=== PATIENT | female | born 1955 | race Caucasian/White ===

== ENCOUNTER → 2018-09-23 13:56 | Outpatient (CLI) | payer BC, SELFPAY ==
--- NOTE | 2018-09-23 14:07 | RAD_ITS ---
STUDY: X-RAY - RIGHT SHOULDER REASON FOR EXAM: Female, 63 years old. Inflammatory polyarthropathy. TECHNIQUE: 4 view(s) of the shoulder. COMPARISON: None. 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 Normal acromion. There is degenerative change of the thoracic spine. Normal humeral head and visualized proximal humerus. The soft tissue structures are unremarkable. Normal visualized pulmonary apex. RAD/Shoulder min 2 Views IMPRESSION: Mild degenerative change. Degenerative changes of the thoracic spine. Electronically Signed: Rachel Adams MD at 22:27 EST Tel , Service support ,
--- NOTE | 2018-09-23 14:08 | RAD_ITS ---
HISTORY: inflammatory polyarthropathy COMPARISON: None FINDINGS: AP Pelvis: 1 view. No fracture or acute disease. The right and left femoral acetabular joint spaces appear preserved the SI joints are not narrowed. No definite bony erosions. Pelvic phleboliths. RAD/Pelvis 1 or 2 Views IMPRESSION: Negative exam. No acute disease or significant arthritis identified. at [id number] Reported and signed by: Zoran Lua MD Electronically Signed: Zoran Lua, at 4:37 EST Tel , Service support ,
--- NOTE | 2018-09-23 14:08 | RAD_ITS ---
STUDY: X-RAY - LEFT SHOULDER REASON FOR EXAM: Female, 63 years old. Inflammatory polyarthropathy TECHNIQUE: 4 view(s) of the shoulder. COMPARISON: None. FINDINGS: Normal glenohumeral articulation. There is degenerative arthrosis of the acromioclavicular joint without inferior osseous spur formation. Normal acromion. Normal humeral head and visualized proximal humerus. The soft tissue structures are unremarkable. Normal visualized pulmonary apex. RAD/Shoulder min 2 Views IMPRESSION: Acromioclavicular degenerative change. No fracture. Electronically Signed: Rachel Adams MD at 2:53 EST Tel , Service support ,
[2018-09-23 16:12] LABS: Absolute Lymphocyte Count 2.58 X10^3/ul (0.83-4.51); Absolute Neutrophil Count 4.7 X10^3/uL (2.0-7.7); Basophil# 0.02 X10^3/uL; Basophil% 0.2 % (0-1); Eosinophil# 0.22 X10^3/uL; Eosinophils% 2.7 % (0-5); Hemoglobin 12.4 g/dl (12.0-15.0); Lymphocyte # 2.58 X10^3/ul (4.0); Lymphocyte % 31.2 % (19-41); Mean Corpuscular Hgb 26.5 pg (27.0-32.0); Mean Corpuscular Volume 85.5 fL (81-99); Mean Platelet Vol. 9.8 fl (6.2-12.0); Monocyte# 0.72 X10^3/uL; Monocyte% 8.7 % (0-10); Neutrophil # 4.72 X10^3/uL (2.7-7.7); Platelet Count 330 K/mm3 (150-450); RBC Distribution Width CV 13.4 % (11.6-14.6); RBC Distribution Width SD 41.7 fl (35.1-43.9); Red Blood Count 4.68 M/mm3 (4.2-5.4); White Blood Count 8.3 K/mm3 (4.4-11.0)
[2018-09-23 16:15] LABS: POSITIVE COUNT NO; POSITIVE DIFFERENTIAL NO; POSITIVE MORPHOLOGY NO
[2018-09-23 16:36] LABS: Erythrocyte Sedimentation Rate 75 mm/hr (0-30)
[2018-09-23 16:40] LABS: ALB/GLOB Ratio 0.8 RATIO (0.9-2.4); AST(SGOT) 17 U/L (15-37); Alanine Aminotransfer ALT/SGPT 23 U/L (13-56); Albumin, Serum 3.8 g/dL (3.2-5.0); Alkaline Phosphatase 94 U/L (45-117); Anion Gap 8 (5-15); BUN 20 mg/dL (7-18); BUN/Creat Ratio 27.9 RATIO (10-20); Calcium,Total 9.5 mg/dL (8.5-10.1); Chloride 102 mmol/L (98-107); Creatinine, Serum 0.72 mg/dL (0.55-1.02); EST Glomerular Filtration Rate 88 mL/min (>60); Est Glom Filt Rate - Afr Amer 106 mL/min (>60); Globulin 4.5 g/dL (2.2-4.2); Glucose 92 mg/dL (74-106); Protein, Total 8.3 g/dL (6.4-8.2); Rheumatoid Factor < 10.0 IU/mL (<15); Sodium Level 138 mmol/L (136-145)
[2018-09-27 09:56] LABS: ANTINUCLEAR ANTIBODIES DIRECT Negative (Negative)
[2018-10-01 15:20] LABS: CCP IgG Antibodies 28 units (0-19); HEPATITIS B SURFACE AG Negative (Negative); HLA B27 Negative (.); Hep B Surface Antibodies Non Reactive (.); Hep C Antibodies 0.2 s/co ratio (0.0-0.9)
--- OUTSIDE RECORDS SUMMARY | 2018-11-26 02:08 | XMS RPT_ITS ---
:1955 Author Organization OHIP Care Team Providers Name Role Phone CYN UNDERWOOD Admitting Unavailable CYN UNDERWOOD Attending Unavailable CYN UNDERWOOD Primary Care Unavailable CYN UNDERWOOD Consulting Unavailable PROVIDER, UNKNOWN Consulting Unavailable PROVIDER, UNKNOWN Consulting Unavailable PROVIDER, UNKNOWN Consulting Unavailable SABI CAMPOS DO Admitting Unavailable SABI CAMPOS DO Attending Unavailable SABI CAMPOS DO Primary Care Unavailable CYN UNDERWOOD Consulting Unavailable CYN UNDERWOOD Referring Unavailable PROVIDER, UNKNOWN Consulting Unavailable PROVIDER, UNKNOWN Consulting Unavailable PROVIDER, UNKNOWN Consulting Unavailable CYN UNDERWOOD Admitting Unavailable CYN UNDERWOOD Attending Unavailable CYN UNDERWOOD Primary Care Unavailable CYN UNDERWOOD Consulting Unavailable PROVIDER, UNKNOWN Consulting Unavailable PROVIDER, UNKNOWN Consulting Unavailable PROVIDER, UNKNOWN Consulting Unavailable Tisha Pope Attending Unavailable Tisha Pope Referring Unavailable Cyn Underwood Primary Care Unavailable PROBLEMS PROBLEMS DATE TYPE CONDITION / CODE ATTENDING STATUS SOURCE 09/23/2018 Unknown 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, Active [place] polyarthropathy / [facility] M06.4(ICD-10) Hospital Repository 09/23/2018 Unknown 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, Active [place] [facility] F32.89(ICD-10) Repository 02/16/2018 Principle Encounter for CYN UNDERWOOD Active [facility] Z131(ICD-10) Repository 02/16/2018 Secondary Encounter for CYN UNDERWOOD Active [facility] Diagnosis screening for lipoid [facility] disorders / Hospital X26243(ICD-10) Repository PROCEDURES PROCEDURES No Procedure Records FoundRESULTS RESULTS CBC W/DIFF, AUTOMATED Collected: 09/23/2018 Status: F Source: [place] 2:12 PM [facility] HOSPITAL REPOSITORY TYPE CODE TESTS RESULT OUT OF RANGE REFERENCE UNITS LAB L100.1000 4.4-11.0 K/mm3 Normal WBC 8.3 LAB L100.1200 4.2-5.4 M/mm3 Normal RBC 4.68 LAB L100.1300 12.0-15.0 g/dl Normal HGB 12.4 LAB L100.1400 37-47 % Normal HCT 40.0 LAB L100.1500 81-99 fL Normal MCV 85.5 LAB L100.1600 27.0-32.0 pg Low MCH 26.5 LAB L100.1700 32-36 g/gl Low MCHC 31.0 LAB L100.1810 11.6-14.6 % Normal RDW CV 13.4 LAB L100.1820 35.1-43.9 fl Normal RDW SD 41.7 LAB L100.1900 150-450 K/mm3 Normal PLT 330 LAB L100.2000 6.2-12.0 fl Normal MPV 9.8 LAB L100.2100 47-70 % Normal NEUT% 57.0 LAB L100.2200 19-41 % Normal LY% 31.2 LAB L100.2300 0-10 % Normal MONO% 8.7 LAB L100.2400 0-5 % Normal EO% 2.7 LAB L100.2500 0-1 % Normal BASO% 0.2 LAB L100.2550 0.0-0.9 % Normal IM GRAN % 0.200 Result Comment: IG% - Immature Granulocytes (promyelocytes, myelocytes and metamyelocytes) > 1% indicates that a LEFT SHIFT is Present. LAB L100.2620 2.0-7.7 X10 3/uL Normal Absolute Neut 4.7 LAB L100.2720 0.83-4.51 X10 3/ul Normal Absolute Lymph 2.58 Performed By: #### L100.0100, L101.9900 #### [facility] [address] [place], [address] ERYTHROCYTE SED RATE Collected: 09/23/2018 Status: F Source: [place] 2:12 PM [facility] REPOSITORY TYPE CODE TESTS RESULT OUT OF RANGE REFERENCE UNITS LAB L102.0000 0-30 mm/hr High SED RATE 75 Performed By: #### L100.0100, L101.9900 #### [facility] [address] [place], [address] COMPREHENSIVE METABOLIC Collected: 09/23/2018 Status: F Source: [facility] 2:12 PM [facility] REPOSITORY TYPE CODE TESTS RESULT OUT OF RANGE REFERENCE UNITS LAB L501.0100 74-106 mg/dL Normal GLU 92 Result Comment: Please note revised GLUCOSE reference range effective 2017. LAB L501.1000 7-18 mg/dL High BUN 20 LAB L501.1100 0.55-1.02 mg/dL Normal CREAT,SERUM 0.72 Result Comment: The validity of the calculated GFR AND GFRAA in patients over 70 years has not been determined. Clinical correlation is essential. LAB L501.1110 >60 mL/min Normal EST GFR 88 Result Comment: Non- GFR Calc LAB L501.1115 >60 mL/min Normal EST GFR - AA 106 Result Comment: GFR Calc LAB L501.1300 10-20 RATIO High BUN/CRE 27.9 LAB L501.1500 6.4-8.2 g/dL High T PROT 8.3 LAB L501.1800 3.2-5.0 g/dL Normal ALB 3.8 LAB L501.1950 2.2-4.2 g/dL High GLOB 4.5 LAB L501.2000 0.9-2.4 RATIO Low A/G 0.8 LAB L501.2200 8.5-10.1 mg/dL CA Normal 9.5 LAB L501.4100 15-37 U/L Normal AST 17 LAB L501.4305 45-117 U/L Normal ALK P 94 LAB L501.4405 13-56 U/L Normal ALT 23 LAB L501.4600 0.20-1.00 mg/dL T Normal BILI 0.60 LAB L501.5300 136-145 mmol/L NA Normal 138 LAB L501.5600 3.5-5.1 mmol/L K Normal 4.0 LAB L501.5900 98-107 mmol/L CL Normal 102 LAB L501.6100 21.0-32.0 mmol/L Normal CO2 28.0 LAB L501.6200 5-15 Normal GAP 8 Performed By: #### L500.4050, L501.6710, L505.7010 #### [facility] [address] [facility] [place], [place], [address] CRP Collected: 09/23/2018 Status: F Source: [place] 2:12 PM [facility] REPOSITORY TYPE CODE TESTS RESULT OUT OF RANGE REFERENCE UNITS LAB L501.6710 0.0-3.0 mg/L High 29.40 C-REACTIVE PROT Result Comment: C-Reactive Protein (CRP) provides useful information for the diagnosis, therapy and monitoring of inflammatory processes and associated diseases. For the evaluation of Relative Risk for Cardiovascular Disease, a High Sensitivity CRP (HSCRP) should be ordered. Performed By: #### L500.4050, L501.6710, L505.7010 #### [facility] [address] [facility] [place], [place], [address] RHEUMATOID FACTOR Collected: 09/23/2018 Status: F Source: [place] 2:12 PM [facility] REPOSITORY TYPE CODE TESTS RESULT OUT OF RANGE REFERENCE UNITS LAB L505.7010 <15 IU/mL Normal RHEUMATOID FAC < 10.0 Performed By: #### L500.4050, L501.6710, L505.7010 #### [facility] [address] [facility] [place], [address] ANTINUCLEAR ANTIBODIES Collected: 09/23/2018 Status: F Source: [place] [facility] 2:12 PM [facility] HOSPITAL REPOSITORY TYPE CODE TESTS RESULT OUT OF RANGE REFERENCE UNITS LAB L3100.5475 Negative Normal Negative CRISTI-DIRECT Result Comment: Performed at: - [facility] [address] [id number] [place]: Devante Moeller PhD, Phone: [phone] Performed By: #### L3100.5475 #### [facility] (refer to report for specific site) refer to report for address and phone number SHOULDER MIN 2 VIEWS Observed: 09/23/2018 Status: F Source: [place] 2:09 PM [facility] HOSPITAL REPOSITORY [facility] Imaging Services [address] [place] [address] Shoulder min 2 Views MR#: [id number] Acct: [id number] Name: MIKE CHAIDEZ Rep #: [id number] : 1955 F 63 From: Rachel Adams MD PCP: Cyn Underwood MD Status: REG CLI Study: Shoulder min 2 Views Date of Exam: 09/23/18 Exam# [id number] Ordering Dr: Tisha Pope MD STUDY: X-RAY - RIGHT SHOULDER REASON FOR EXAM: Female, 63 years old. Inflammatory polyarthropathy. TECHNIQUE: 4 view(s) of the shoulder. COMPARISON: None. 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 Normal acromion. There is degenerative change of the thoracic spine. Normal humeral head and visualized proximal humerus. The soft tissue structures are unremarkable. Normal visualized pulmonary apex. RAD/Shoulder min 2 Views IMPRESSION: Mild degenerative change. Degenerative changes of the thoracic spine. Electronically Signed: Rachel Adams MD at 22:27 EST Tel , Service support , CC: Tisha Pope MD; Cyn Underwood MD Wireless Telegrapher: Signed SHOULDER MIN 2 VIEWS Observed: 09/23/2018 Status: F Source: [place] 2:09 PM [facility] HOSPITAL REPOSITORY [facility] Imaging Services [address] [place] [address] Shoulder min 2 Views MR#: [id number] Acct: [id number] Name: MIKE CHAIDEZ Rep #: [id number] : 1955 F 63 From: Rachel Adams MD PCP: Cyn Underwood MD Status: REG CLI Study: Shoulder min 2 Views Date of Exam: 09/23/18 Exam# [id number] Ordering Dr: Tisha Pope MD STUDY: X-RAY - LEFT SHOULDER REASON FOR EXAM: Female, 63 years old. Inflammatory polyarthropathy TECHNIQUE: 4 view(s) of the shoulder. COMPARISON: None. FINDINGS: Normal glenohumeral articulation. There is degenerative arthrosis of the acromioclavicular joint without inferior osseous spur formation. Normal acromion. Normal humeral head and visualized proximal humerus. The soft tissue structures are unremarkable. Normal visualized pulmonary apex. RAD/Shoulder min 2 Views IMPRESSION: Acromioclavicular degenerative change. No fracture. Electronically Signed: Rachel Adams MD at 2:53 EST Tel , Service support , CC: Tisha Pope MD; Cyn Underwood MD Wireless Telegrapher: Signed PELVIS 1 OR 2 VIEWS Observed: 09/23/2018 Status: F Source: [place] 2:09 PM [facility] HOSPITAL REPOSITORY [facility] Imaging Services [address] [place] [address] Pelvis 1 or 2 Views MR#: [id number] Acct: [id number] Name: MIKE CHAIDEZ Rep #: [id number] : 1955 F 63 From: Zoran Lua MD PCP: Cyn Underwood MD Status: REG CLI Study: Pelvis 1 or 2 Views Date of Exam: 09/23/18 Exam# [id number] Ordering Dr: Tisha Pope MD HISTORY: inflammatory polyarthropathy COMPARISON: None FINDINGS: AP Pelvis: 1 view. No fracture or acute disease. The right and left femoral acetabular joint spaces appear preserved the SI joints are not narrowed. No definite bony erosions. Pelvic phleboliths. RAD/Pelvis 1 or 2 Views IMPRESSION: Negative exam. No acute disease or significant arthritis identified. at 0438 Reported and signed by: Zoran Lua MD Electronically Signed: Zoran Lua, at 4:37 EST Tel , Service support , CC: Tisha Pope MD; Cyn Underwood MD Wireless Telegrapher: Signed MAMM DIGITAL BILAT Observed: 02/26/2018 Status: F Source: [facility] SCREEN 3:18 PM [place] [address] Patient: MIKE CHAIDEZ Phone#: : [phone] Age: 62 Gender: F Pt. Type: Out Account: [id number] Location: 052 Ordering: CYN UNDERWOOD Exam Date: 02/26/2018/15:24 Family Phys: Charge Code: [id number] Physician: [place] Order #: [id number] DLP Dose#: PROCEDURE: MAMM BILAT DIGITAL SCREENING WITH CAD COMPARISON: [facility], BILAT DIAGNOSTIC, 02/02/2017, 14:36. INDICATIONS: Screening BREAST COMPOSITION: Extremely dense, which may lower the sensitivity of mammography (>75% glandular). FINDINGS: DIAGNOSTIC CATEGORY 1--NEGATIVE ASSESSMENT. RIGHT BREAST: No significant suspicious finding. Stable calcifications in the right upper outer quadrant. No significant change has occurred. LEFT BREAST: No significant suspicious finding. No significant change has occurred. RECOMMENDATIONS: ROUTINE MAMMOGRAM AND CLINICAL EVALUATION. PLEASE NOTE: A NORMAL MAMMOGRAM DOES NOT EXCLUDE THE POSSIBILITY OF BREAST CANCER. A CLINICALLY SUSPICIOUS PALPABLE LUMP SHOULD BE BIOPSIED. THIS FACILITY UTILIZES A REMINDER SYSTEM TO ENSURE THAT ALL PATIENTS RECEIVE REMINDER LETTERS FOR APPOINTMENTS. THIS INCLUDES REMINDERS FOR ROUTINE MAMMOGRAMS, DIAGNOSITC MAMMOGRAMS, OR OTHER BREAST IMAGING INTERVENTIONS WHEN APPROPRIATE. THIS PATIENT WILL BE PLACED IN THE APPROPRIATE REMINDER SYSTEM. Dictated by: Sofie Garcia MD on 02/26/2018 at 17:03 Approved by: Sofie Garcia MD on 02/26/2018 at 17:03 EMERGENCY REPORT Observed: 02/21/2018 Status: F Source: [place] 2:24 AM [facility] EMERGENCY ROOM REPORT NAME ACCOUNT SEX AGE ADMIT DISCHARGE PT MED. RECORD# NUMBER DATE DATE TYPE KAYLYNN [id number] F 62 02/19/18 02/19/18 3 MIKE Lorenzo [address] ROOM: ER DATE OF : 1955 DICTATING PHYSICIAN: Sabi Campos ADDENDUM DIAGNOSTIC DATA: White count was 6.8, hemoglobin 12.9, hematocrit 37.8, and platelet count 228,000. Sodium was 137, potassium 3.5, chloride 103, CO2 of 24.4, BUN 21, and creatinine 0.7. Glucose was 103. AST was 20, ALT 20, alkaline phosphatase 62, and total bilirubin 0.9. Anion gap was 13. Her acetaminophen level came back negative at less than 10. Salicylate level was negative at less than 4. Blood alcohol level was less than 8 mg/dL, which is negative. Her urine drug screen came back positive for benzodiazepines and negative for everything else, which is consistent with her history. EMERGENCY DEPARTMENT COURSE AND TREATMENT: I did speak with Poison Control, and they recommended an observation period of 4 hours. She has been here for at least 4 hours now, and she is still alert, oriented, walks with a steady gait and does not appear sleepy at all. We called Crisis, and they were going to come out and see her, but it is going to be about 3 hours before they have a counselor here. The patient does not want to wait that long, and she continues to deny any suicidal or homicidal ideation. She does have 2 family members with her that are willing to watch her all night, and they will be with her all day tomorrow too. They felt comfortable taking the patient home. They do not believe she is suicidal as well. The patient repeatedly said she just took these because she was mad and upset at the time and then regretted doing it as soon as she did. As good as she looks clinically, I still wanted her to see the counselor, but since she seemed to be insistent on going home I am just going to have her sign out against medical advice. She is willing to follow up with Crisis on an outpatient basis, so presently Neha is working on getting her an appointment tomorrow. She is going to call Crisis back, and we will get her an appointment to see them tomorrow. The family that is with her says they are okay with driving her up to [place] to see Crisis. The patient will sign out against medical advice but follow up with Crisis tomorrow with the help of family. She was discharged with family members present and in attendance. DIAGNOSIS: Anxiety. Dictated By: Sabi Campos DO 02/19/18 23:17 JOB #: [id number] Transcribed By: marquita 02/20/18 06:50 Electronically signed by: E-Sign: Dr. Sabi Campos D.O. 02/21/18 02:24 Page 1 of 1 MIKE CHAIDEZ Emergency Room Report EMERGENCY REPORT Observed: 02/21/2018 Status: F Source: [facility] 2:23 AM [facility] EMERGENCY ROOM REPORT NAME ACCOUNT SEX AGE ADMIT DISCHARGE PT MED. RECORD# NUMBER DATE DATE TYPE KAYLYNN [id number] F 62 02/19/18 3 MIKE Lorenzo [address] ROOM: ER DATE OF : 1955 DICTATING PHYSICIAN: Sabi Campos TIME SEEN: 7:40 p.m. CHIEF COMPLAINT/HISTORY OF PRESENT ILLNESS: This is a 62-year-old white female that states within the past hour she took 8 or 10 Xanax 0.5 mg. She states she has had that prescription for about a year, rarely takes them. She thinks the last time she took one was about 2 months ago. They were prescribed for anxiety by her family doctor. She denies any suicidal ideation. She states she took them because she was upset. She had been arguing with her daughter and she took them all at once just because she was upset but now she regrets it and she denies being suicidal. She states she feels silly. Presently she denies any symptoms. She denies any drowsiness or sleepiness. Denies any trouble breathing. PAST MEDICAL HISTORY: Anxiety. PAST SURGICAL HISTORY: Cholecystectomy. ALLERGIES: No known drug allergies. SOCIAL HISTORY: Patient admits to occasional alcohol use. Denies taking any alcohol today. She is not a smoker. Denies any illicit drug use. She lives at home with her family. She states that both of her children have been diagnosed as bipolar. REVIEW OF SYSTEMS: Denies any chest pain, shortness of breath, cough, sputum, wheezing, abdominal pain, nausea, vomiting, diarrhea, constipation, melena, hematochezia, headache, numbness, unsteady gait, weakness, neck or back pain, joint pain, skin rash, swelling, hives, hay fever or swollen glands. She denies any homicidal or suicidal ideation. Further review of systems is negative. PHYSICAL EXAMINATION: Vital Signs: Blood pressure 125/81, pulse 84, respirations 18, temperature 96.8, pulse oximetry 97%, weight [address] Cyn Underwood. Patient is alert and oriented x 3. She presently appears in no acute distress. She is pleasant and cooperative. HEENT: Head appears atraumatic. Pupils are equal and reactive to light. Red reflex is intact bilaterally. Extraocular muscles are intact. No conjunctival injection. No scleral icterus or lid edema. Ears: TMs are intact bilaterally. No erythema noted. No external auditory canal edema or bleeding. Nose exhibits no rhinorrhea or epistaxis. Mouth: Mucous membranes are moist. No Page 1 of 2 MIKE CHAIDEZ Emergency Room Report pharyngeal erythema. Uvula is midline and elevates. Neck is supple. Trachea is midline. No JVD or lymphadenopathy. No posterior cervical tenderness. No nuchal rigidity. Lungs are clear to auscultation in all lung gross. No adventitious sounds noted. No accessory muscle use. CVS: Heart rate and rhythm regular. No murmur noted. Abdomen is soft and nontender with normoactive bowel sounds x4 quadrants. No guarding or rigidity. No rebound. No palpable abdominal mass. No hepatosplenomegaly. Back exhibits no midline or paraspinal region tenderness. No increased paraspinal muscle rigidity. Negative Jose Alejandro's sign. Extremities: No edema or cyanosis. Peripheral pulses are intact. No motor or sensory deficits noted. Hand hand miter operator is strong and symmetric. Skin is warm and dry. No diaphoresis or rash. Neurologic exam shows the patient to be alert and oriented x4. No motor or sensory deficits are noted. Normal speech. Patient is pleasant and cooperative with normal affect. She makes eye contact. EMERGENCY DEPARTMENT COURSE AND TREATMENT: Presently, at this point I intend on doing some screening blood work. We will include an ETOH level and a urine drug screen. I will call Poison Control and we will find out what kind of observation period we have for this patient but clinically at this point she looks very good. I did explain to her we will just have to observe her and to make sure she stays that way. Will then reevaluate. DIAGNOSIS: Dictated By: Sabi Campos DO 02/19/18 19:56 JOB #: [id number] Transcribed By: keila 02/19/18 21:45 Electronically signed by: E-Sign: Dr. Sabi Campos D.O. 02/21/18 02:23 Page 2 of 2 MIKE CHAIDEZ Emergency Room Report DRUG SCREEN URINE Collected: 02/19/2018 Status: F Source: [facility] 9:25 PM [facility] REPOSITORY TYPE CODE TESTS RESULT OUT OF REFERENCE UNITS RANGE LAB DRUG SCREEN URINE MEDIC(LOINC) DRUG SCREEN URINE MEDIC Result Comment: DRUG SCREEN - URINE LAB PCP(LOINC) PCP NEG LAB COCAINE(LOINC) COCAINE NEG LAB OPIATES(LOINC) OPIATES NEG LAB AMPHETAMINES(LOINC ) AMPHETAMINES NEG LAB B-DIAZEPINES(LOINC ) B-DIAZEPINES POS LAB TCA(LOINC) TCA NEG LAB METHADONE(LOINC) METHADONE NEG LAB BARBITURATES(LOINC ) BARBITURATES NEG LAB THC(LOINC) THC NEG Result Comment: PATIENTS RECEIVING PROTON PUMP INHIBITORS MAY DEMONSTRATE FALSE POSITIVE THC/CANNABINOID RESULTS. AN ALTERNATIVE CONFIRMATORY METHOD SHOULD BE CONSIDERED TO VERIFY POSITIVE RESULTS. Performed By: #### [id number] #### [facility],[address] [place] [address] CBC Collected: 02/19/2018 Status: F Source: [place] 8:27 [facility] REPOSITORY TYPE CODE TESTS RESULT OUT OF RANGE REFERENCE UNITS LAB CBC(LOINC) CBC Result Comment: CBC-COMPLETE BLOOD COUNT LAB WBC(LOINC) 4.5 - 10.8 x 10EE3/UL WBC 6.8 LAB RBC(LOINC) 4.10 - x 10EE6/UL 5.30 RBC 4.57 LAB HEMOGLOBIN(LOINC) 12.0 - g/dl 16.0 HEMOGLOBIN 12.9 LAB HEMATOCRIT(LOINC) 34.0 - % 46.0 HEMATOCRIT 37.8 LAB MCV(LOINC) 80 - 99 fl MCV 83 LAB MCH(LOINC) 27 - 33 pg MCH 28 LAB MCHC(LOINC) 32 - 36 X10 3 MCHC 34 LAB RDW/CV(LOINC) 12.0 - % 15.6 RDW/CV 13.3 LAB PLATELET(LOINC) 150 - 450 x10EE3/UL PLATELET 228 LAB MPV(LOINC) 6.6 - 10.5 fl MPV 8.4 Result Comment: AUTOMATED DIFFERENTIAL LAB NEUT %(LOINC) 46.0 - 76.0 % NEUT % 58.6 LAB LYMPH %(LOINC) 20.0 - 45.0 % LYMPH % 29.4 LAB MONOS %(LOINC) 0.0 - 10.0 % MONOS % 9.4 LAB EO %(LOINC) 0.0 - 7.0 % EO % 1.8 LAB BASO %(LOINC) 0.0 - 2.0 % BASO % 0.8 LAB Lymph #(LOINC) 0.80 - 2.80 x10EE3/U L Lymph # 2.00 LAB Neut #(LOINC) 1.50 - 7.10 x10EE3/U L Neut # 4.00 LAB Carroll #(LOINC) 0.20 - 1.00 x10EE3/U L Carroll # 0.60 LAB EO #(LOINC) 0.00 - 0.50 x10EE3/U L EO # 0.10 LAB Baso #(LOINC) 0.00 - 0.10 x10EE3/U L Baso # 0.10 LAB MANUAL DIFF(LOINC) MANUAL DIFF N/A LAB MORPHOLOGY(LOINC ) MORPHOLOGY N/A Result Comment: {CD] Performed By: #### [id number] #### [facility],[address] [place] [address] CMP WITH EGFR Collected: 02/19/2018 Status: F Source: [place] 8:27 PM [facility] REPOSITORY TYPE CODE TESTS RESULT OUT OF RANGE REFERENCE UNITS LAB CMP with eGFR(LOINC) CMP with eGFR Result Comment: COMPREHENSIVE METABOLIC PANEL LAB SODIUM(LOINC) 136 - 145 mmol/l SODIUM 137 LAB POTASSIUM(LOINC) 3.5 - 5.1 mmol/L POTASSIUM 3.5 LAB CHLORIDE(LOINC) 98 - 107 mmol/L CHLORIDE 103 LAB CO2(LOINC) 21.0 - mmol/L 31.0 CO2 24.4 LAB GLUCOSE(LOINC) 74 - 106 mg/dl GLUCOSE 103 LAB BUN(LOINC) 6 - 20 mg/dl BUN High 21 LAB CREATININE(LOINC) 0.6 - 1.2 mg/dl CREATININE 0.7 LAB AST/SGOT(LOINC) 13 - 39 U/L AST/SGOT 20 LAB ALK PHOS(LOINC) 38 - 126 U/L ALK PHOS 62 LAB CALCIUM(LOINC) 8.6 - mg/dl 10.2 CALCIUM 9.3 LAB TOTAL 6.4 - 8.3 g/dl PROTEIN(LOINC) TOTAL PROTEIN 7.2 LAB ALBUMIN(LOINC) 3.4 - 4.8 g/dL ALBUMIN 4.0 LAB GLOBULIN(LOINC) 1.5 - 3.8 G/DL GLOBULIN 3.2 LAB A/G RATIO(LOINC) 0.9 - 1.6 A/G RATIO 1.3 LAB TOTAL BILI(LOINC) 0.0 - 1.5 mg/dl TOTAL BILI 0.9 LAB B/C RATIO(LOINC) 0 - 30 ratio B/C RATIO 30 LAB ALT/SGPT(LOINC) 8 - 35 U/L ALT/SGPT 20 LAB ANION GAP(LOINC) 10 - 20 mmol/L ANION GAP 13 LAB AGE(LOINC) years AGE 62 LAB eGFR(LOINC) 60 - 999 ML/MINUTE eGFR >60 LAB eGFR(AA)(LOINC) 60 - 999 ML/MINUTE eGFR(AA) >60 Result Comment: ACCORDING TO THE NATIONAL KIDNEY DISEASE EDUCATION PROGRAM(NKDE), A NORMAL eGFR IS A VALUE GREATER THAN OR EQUAL TO 60 ML/MIN/1.73 SQ METERS. CHRONIC KIDNEY DISEASE: <60mL/MIN/1.73 SQ METERS KIDNEY FAILURE: <15mL/MIN/1.73 SQ METERS THIS TEST SHOULD ONLY BE USED FOR PATIENTS 18 YEARS OF AGE AND OLDER. Performed By: #### [id number] #### [place] [address] ALCOHOL-BLOOD MEDICAL Collected: 02/19/2018 Status: F Source: [facility] 8:27 PM [facility] REPOSITORY TYPE CODE TESTS RESULT OUT OF REFERENCE UNITS RANGE LAB ALCOHOL(ZEENAT 0 - 50 mg/dl NC) ALCOHOL <8 Performed By: #### [id number] #### [place] [address] SALICYLATE Collected: 02/19/2018 Status: F Source: [facility] 8:27 PM [facility] REPOSITORY TYPE CODE TESTS RESULT OUT OF REFERENCE UNITS RANGE LAB SALICYLATE 0.0 - 30.0 mg/dl (LOINC) SALICYLATE <4.0 Result Comment: *PATIENTS TREATED WITH SULFASALAZINE MAY GENERATE A FALSE HIGH RESULT FOR SALICYLATE. *PATIENTS TREATED WITH SULFAPYRIDINE MAY GENERATE A FALSE LOW RESULT FOR SALICYLATE. Performed By: #### [id number] #### [place] [address] ACETAMINOPHEN Collected: 02/19/2018 Status: F Source: [facility] 8:27 PM [facility] REPOSITORY TYPE CODE TESTS RESULT OUT OF REFERENCE UNITS RANGE LAB ACETAMINOP 10.0 - 20.0 ug/mL HEN(LOINC) ACETAMINOPHEN <10.0 Performed By: #### [id number] #### [place] [id number] LIPID PROFILE Collected: 02/16/2018 Status: F Source: [facility] 7:50 AM [facility] REPOSITORY TYPE CODE TESTS RESULT OUT OF REFERENCE UNITS RANGE LAB LIPID PROFILE(LOIN C) LIPID PROFILE Result Comment: LIPID PROFILE LAB TRIGLYCERIDE(LOINC) 0 - 150 mg/dl TRIGLYCERIDE 118 LAB CHOLESTEROL(LOINC) 0 - 200 mg/dl CHOLESTEROL 178 LAB HDL(LOINC) 40 - 60 mg/dl HDL Low 39 LAB CHOL/HDL(LOINC) 0.0 - 5.0 CHOL/HDL 4.6 LAB LDL(LOINC) 0 - 129 mg/dl LDL 115 Performed By: #### [id number] #### [address] [address] GLUCOSE Collected: 02/16/2018 Status: F Source: [facility] 7:50 AM [facility] REPOSITORY TYPE CODE TESTS RESULT OUT OF REFERENCE UNITS RANGE LAB GLUCOSE(ZEENAT 74 - 106 mg/dl NC) High GLUCOSE 117 Performed By: #### [id number] #### [address] [address] HGB A1C Collected: 02/16/2018 Status: F Source: [facility] 7:50 AM [facility] REPOSITORY TYPE CODE TESTS RESULT OUT OF RANGE REFERENCE UNITS LAB HGB 4.4 - 6.4 % A1C(LOINC) HGB A1C 6.3 Result Comment: {HB] {A1] Performed By: #### [id number] #### [address] [address] ALLERGIES ALLERGIES DATE TYPE / CODE NAME / CODE REACTION SEVERITY SOURCE Miscellaneous No Known Drug Moderate [facility] Allergy/[id number](S Allergies ([facility]) Modifier) Hospital (Qualifier Repository Value) ENCOUNTERS ENCOUNTERS ADMIT/DISCHARGE ACCOUNT ADMITTING ENCOUNTER LOCATION SOURCE NUMBER CLASS 09/23/[id number] ing:MTLAB Repository 02/26/2018/ [id number] CYN UNDERWOOD [place] [address] A [facility] Repository 02/19/2018/ [id number] SABI CAMPOS [facility] [place] [address] DO oom: ERBed: B [facility] Repository 02/16/2018/ [id number] CYN UNDERWOOD Ambulatory [facility] 8 A [facility] Repository PAYERS PAYERS ENCOUNTER GUARANTOR PAYER SUBSCRIBER SOURCE 09/23/2018 MIKE [id number] MARTINE Insurance:Hue ORELLANAB: [address], Number: [id number] [address]Emq: [id number] Repository ve Date:[id number] () [address], [place] [address]ZH: 09/23/2018 Secondary NOT GIVENUNK [place] Insurance:SELF PAY [facility]: Effective Repository Date:2018-09-23 02/26/2018 MIKE Primary Insurance:ASHER Serrano ESTEBANB: CROSS 332 NEISHA ORELLANAB: [facility] [id number] [facility] CR Number: [address] Repository [address] [place] [address] [id number] [place], [place] [address]Ryc: ve Date:Plan Name:B2 Fl [id number] () 02/19/2018 MIKE Primary Insurance:ASHER Serrano ESTEBANB: CROSS 332 JOSEPRAINER LALYVESNAB: [facility] [id number] Hospital CR Number: [address] Repository [address] [place] [address] [id number] [address] [place] [id number]: ve Date:Plan Name:B2 Oh [id number] () 02/16/2018 MIKE Primary Insurance:ASHER Serrano ESTEBANB: CROSS [id number] NEISHA CHAIDEZB: [facility] [id number] [facility] CR Number: [address] Repository [address] [place] [id number] [address]Qmz: ve Date:Plan Name:B2 Oh [id number] ()
== END ==
PROVIDERS: Family Provider Family Medicine; PCP Family Medicine; Referring Provider Internal Medicine Rheumatology; Visit Provider Internal Medicine Rheumatology
DX: M06.4 Inflammatory polyarthropathy (principal); F32.89 Other specified depressive episodes
CPT/HCPCS: 36415; 72170; 73030; 80053; 81374; 85025; 85652; 86038; 86140; 86200; 86431; 86706; 86803; 87340

== ENCOUNTER → 2019-03-26 16:00 | Outpatient (CLI) | payer BC, SELFPAY ==
[2019-03-26 17:44] LABS: Hematocrit 40.3 % (37-47); Hemoglobin 12.9 g/dL (12.0-15.0); Mean Corpuscular Volume 87.6 fL (81-99); Mean Platelet Vol. 10.2 fl (6.2-12.0); Platelet Count 269 K/mm3 (150-450); RBC Distribution Width CV 12.3 % (11.6-14.6); RBC Distribution Width SD 39.5 fl (35.1-43.9); White Blood Count 7.2 K/mm3 (4.4-11.0)
[2019-03-26 18:03] LABS: Anion Gap 6 (5-15); BUN 21 mg/dL (7-18); BUN/Creat Ratio 23.5 RATIO (10-20); Calcium,Total 9.3 mg/dL (8.5-10.1); Chloride 102 mmol/L (98-107); EST Glomerular Filtration Rate 68 mL/min (>60); Est Glom Filt Rate - Afr Amer 82 mL/min (>60); Glucose 89 mg/dL (74-106); Potassium 4.4 mmol/L (3.5-5.1); Sodium Level 135 mmol/L (136-145); Thyroid Stim Hormone (TSH) 1.31 uIU/mL (0.358-3.74)
[2019-03-28 11:21] LABS: Thyroid Peroxidase AB 32 IU/mL (0-34)
== END ==
PROVIDERS: Family Provider Family Medicine; PCP Family Medicine; Referring Provider Physician Assistant; Visit Provider Physician Assistant
DX: L64.8 Other androgenic alopecia (principal)
CPT/HCPCS: 36415; 80048; 84443; 85027; 86376

== ENCOUNTER → 2021-05-26 15:37 | Outpatient (CLI) | payer BC, SELFPAY ==
--- NOTE | 2021-05-26 13:50 | EMB_PTH ---
PATIENT: MIKE CHAIDEZ LOC: [facility] U#:[id number] AGE/SX: 69/F ROOM: RE05/26/[address]: Dr. Marco Puri MD : [id number] BED: DIS: SPEC #: [id number] RECD: 05/26/21 17:54 STATUS: ZENY BRADLEY #: [id number] NASRA: 05/26/21 13:[address]: Marco Puri DEPT: SURGICAL PATHOLOGY RECD BY: Luisa Sanchez ENTERED: 05/27/21 07:36 SP TYPE: ENDOM BX/C SHANTA DR: Dr. Parrish Underwood MD Tissues: Endometrium, NOS Procedures: Surgery Specimen Level IV HEADER OPERATION: Endometrial biopsy PRE-OP DIAGNOSIS: N95.0 TISSUE SUBMITTED: Endometrial biopsy MICROSCOPIC DIAGNOSIS Endometrium, biopsy: Scant strips of benign superficial glandular and squamous mucosa. See comment. AM:tamie 05/30/2021 COMMENT The specimen primarily consists of mucoid material. Clinical correlation is suggested. MICROSCOPIC DESCRIPTION Slides are reviewed. GROSS DESCRIPTION Received in fixative is one container labeled with the patient's name and designated EM biopsy. The specimen consists of multiple irregular fragments of nguyen mucoid tissue mixed with scant hemorrhagic tissue that in aggregate measure 2.5 x 1.5 x 0.3 cm. The specimen is totally submitted in one cassette. / SJ:tamie 05/27/21 TC:5 CPT: 53017
== END ==
PROVIDERS: PCP Family Medicine; Visit Provider Obstetrics & Gynecology
DX: N95.0 Postmenopausal bleeding (principal)
CPT/HCPCS: 88305